=== PATIENT | female | born 1945 | race Caucasian/White ===

== ENCOUNTER → 2021-03-16 12:19 | Outpatient (CLI) | payer OTHER, SELFPAY | PROVIDERS: PCP Nurse Practitioner Family; Visit Provider Nurse Practitioner | DX: Z20.822 Contact with and (suspected) exposure to COVID-19 (principal) | CPT/HCPCS: C9803; U0003; U0005 ==

== ENCOUNTER → 2021-03-28 08:01 | Outpatient (CLI) | payer OTHER, SELFPAY | PROVIDERS: PCP Nurse Practitioner Family; Visit Provider Nurse Practitioner | DX: Z20.822 Contact with and (suspected) exposure to COVID-19 (principal); U07.1 COVID-19 | CPT/HCPCS: C9803; U0003; U0005 ==

== ENCOUNTER → 2021-07-26 10:51 | Outpatient (CLI) | payer OTHER, SELFPAY | PROVIDERS: PCP Nurse Practitioner Family; Visit Provider Nurse Practitioner | DX: U07.1 COVID-19 (principal) | CPT/HCPCS: C9803; U0003; U0005 ==

== ENCOUNTER 2022-05-29 09:28 | Inpatient (IN) | payer MEDICARE, MEDICAID, SELFPAY ==
[2022-05-29] VITALS (7 sets, daily range): BP systolic 107–168; BP diastolic 50–82; PULSE 59–72; RESP 16–26; TEMP 36.4–36.9; O2SAT 93–98; BMI 38.2; BMI 39.9
--- NOTE | 2022-05-29 09:42 | PC.NURSE ---
Dinh notified of stroke protocol MD at bedside
--- NOTE | 2022-05-29 09:46 | CT_ITS ---
FINAL REPORT TECHNIQUE: Noncontrast exam CLINICAL HISTORY: weakness/slurred speech-- stroke possible FINDINGS: Mild generalized atrophy. No abnormal density is seen. Ventricles are normal. There is no hemorrhage. No mass effect is seen. Moderate calcified plaque disease in the distal vertebral arteries. Bone windows show no evidence of fracture. IMPRESSION: No acute findings Reviewed, Interpreted and Dictated by José Victor MD Transcribed by Denis Dillon Authenticated and [facility]
--- NOTE | 2022-05-29 09:48 | XR_ITS ---
FINAL REPORT CLINICAL HISTORY: weak FINDINGS: PORTABLE CHEST The heart is normal in size. The mediastinum is unremarkable. The lungs are clear. There is no pneumothorax. IMPRESSION: No acute process. Reviewed, Interpreted and Dictated by José Victor MD Transcribed by Mei Snow Authenticated and [facility]
--- NOTE | 2022-05-29 09:49 | PC.NURSE ---
NIHSS score of 4 at this time. Notified
--- NOTE | 2022-05-29 09:50 | HMH.EDGENADL ---
Discharge Plan Referrals Follow up/Referrals: Louise Isaac [Primary Care Provider] - See instructions Discharge ED Provider: Clayton Manazno General Adult HPI General Stated complaint: ao 05/27 09:30 disorented and pain in arm, leg anl Time Seen by Provider: 05/29/22 09:42 History of Present Illness HPI narrative: Patient presents with 3-day history of left-sided weakness. Symptoms began on Sunday and resulted in a fall that day for which she denies injury. She denies headache or chest pain. She denies similar symptoms. Symptoms are described as moderate and without exacerbating or alleviating factors. Related Data Allergies Allergy/AdvReac Type Severity Reaction Status Date / Time No Known Allergies Allergy Verified 05/29/22 09:46 ROS Obtained: Yes All systems reviewed & no additional complaints except as documented Physical Exam General General appearance: alert Head Head exam: atraumatic, normocephalic and normal inspection Eye Eye exam: Present normal appearance, PERRL and EOMI ENT ENT exam: Present normal exam, normal oropharynx, mucous membranes moist, TM's normal bilaterally and normal external ear exam Neck Neck exam: Present normal inspection, full ROM and trachea midline; Absent meningismus or lymphadenopathy Chest Chest inspection: Present normal inspection and symmetric chest wall rise; Absent tenderness Respiratory Respiratory exam: Present normal lung sounds bilaterally; Absent respiratory distress Cardiovascular Cardiovascular exam: Present regular rate and normal rhythm; Absent JVD Abdominal Exam Abdominal exam: Present soft and normal bowel sounds; Absent distention, tenderness or guarding Extremities Exam Extremities exam: Present normal inspection, full ROM and normal capillary refill; Absent calf tenderness Back Exam Back exam: Present normal inspection; Absent tenderness Neurological Exam Neurological exam: Present alert, oriented X3 and motor sensory deficit (There is a slight left facial droop with her subtle weakness to the left arm and left leg. Sensory exam appears to be intact. There is slight pronator drift of the left arm.) Psychiatric Psychiatric exam: Present normal affect and normal mood Skin Skin exam: Present warm, dry, intact and normal color Lymphatic Lymphatic Findings: no adenopathy Medical Decision Making Medical Records Medical records reviewed: Yes I reviewed the patient's medical records. Tomi Inquiry Pt receiving controlled substance: No Orders (Tests/Meds): ED MEDICATIONS Generic Name Dose Route Start Last Admin Trade Name Freq PRN Reason Stop Dose Admin Sodium Chloride 10 ml 05/29/22 09:57 Sodium Chloride 0.9% 10ml Flush Syringe IV 06/28/22 09:56 NEEDED PRN Maintain IV Site ORDERS Category Date Time Status CT head/brain wo con Stat Cat Scan 05/29/22 09:46 Taken CXR --portable [XR chest portable] Stat Exams 05/29/22 09:48 Ordered CBC w/Auto Diff [Complete Blood Count Auto Diff] Stat Lab 05/29/22 09:45 Received CMP [Comprehensive Metabolic Panel] Stat Lab 05/29/22 09:45 Received PT/INR [Prothrombin Time INR] Stat Lab 05/29/22 09:45 Received Urinalysis and Microscopic Stat Lab 05/29/22 09:50 Ordered ECG Data Tracing #1: EKG: Rate 52, normal P waves, first-degree AV block., Nonspecific ST segment changes, LVH, normal QT interval, no previous for comparison. Critical Care Time Critical Care Time Critical Care Time: No Attestation: On , the high probability of a clinically significant, sudden or life threatening deterioration of the following system(s) required my full and direct attention, intervention and personal management. The time I documented below is in addition to time spent performing reported procedures but includes the following listed in this critical care notation.
--- NOTE | 2022-05-29 10:01 | PC.NURSE ---
PT BACK FROM CT
--- NOTE | 2022-05-29 10:05 | ECG_ITS ---
APPROVED REPORT Exam: Resting ECG HR:52 bpm ECG Measurements Heart Rate 52 AXES UT 233 P 61 QRSd 91 QRS 23 QT 437 T 19 QTc 418 Conclusion SINUS BRADYCARDIA WITH FIRST DEGREE AV BLOCK MODERATE VOLTAGE CRITERIA FOR LVH, CONSIDER NORMAL VARIANT [MEETS CRITERIA IN ONE OF: R(aVL), S(V1), R(V5), R(V5/V6)+S(V1)] NONSPECIFIC T-WAVE ABNORMALITY ABNORMAL ECG UNCONFIRMED REPORT Electronically signed by : Maury Galvez MD 05/29/2022 21:09:54
--- NOTE | 2022-05-29 10:08 | PC.NURSE ---
EKG delayed due to patient going to CT for stroke protocol.
[2022-05-29 10:11] LABS: Basophils # 0.1 K/mm3 (0-0.2); Basophils % 1.1 % (0.1-2.0); Eosinophils # 0.4 K/mm3 (0.0-0.4); Eosinophils % 4.9 % (0.1-12.0); Hematocrit 45.8 % (37.0-47.0); Hemoglobin 14.7 g/dL (12.2-16.2); Lymphocytes # 2.7 K/mm3 (0.7-4.5); Lymphocytes % 30.9 % (10-50); Mean Corpuscular HGB Conc 32.1 g/dL (31.8-35.4); Mean Corpuscular Hemoglobin 29.9 pg (27.0-31.2); Mean Corpuscular Volume 93.1 fl (81-99); Mean Platelet Volume 8.2 fl (7.4-10.4); Monocytes # 0.8 K/mm3 (0.1-1.0); Monocytes % 8.8 % (1.7-9.3); Neutrophils # 4.7 K/mm3 (1.8-7.8); Neutrophils % 54.3 % (37.0-80.0); Platelet Count 406 K/mm3 (142-424); Red Blood Count 4.93 M/mm3 (4.20-5.40); Red Cell Distribution Width 13.3 % (11.5-17.5); White Blood Count 8.6 K/mm3 (4.8-10.8)
--- NOTE | 2022-05-29 10:18 | PC.NURSE ---
Called rad to check on head CT report. Advised the report was locked at this time
[2022-05-29 10:20] LABS: Chloride 103 mmol/L (98-107); Sodium 138 mmol/L (136-145)
[2022-05-29 10:23] LABS: Alanine Aminotransferase 43 U/L (12-78); Albumin Level 4.7 g/dl (3.5-5.0); Albumin/Globulin Ratio 1.6 (1.1-1.8); Alkaline Phosphatase 82 U/L (38-126); Aspartate Amino Transferase 43 U/L (14-36); Bilirubin,Total 0.7 mg/dl (0.2-1.3); Blood Urea Nitrogen 20 mg/dl (7-17); Carbon Dioxide 25 mmol/L (22.0-30.0); Creatinine Clearance Estimated 69 mL/min (50-200); Estimated Glomerular Filt Rate 61 ml/min (>60); GFR (African American) 73 ML/MIN (>60); Glucose 124 mg/dl (74-100); INR 1.06 (0.9-1.1); Prothrombin Time 11.4 seconds (10.1-12.5); Total Protein,Serum 7.7 g/dl (6.3-8.2)
--- NOTE | 2022-05-29 10:23 | PC.NURSE ---
Preliminary CT report given to
[2022-05-29 10:26] LABS: Coronavirus 19, PCR Not Detected (NotDetected); Influenza A, PCR Not Detected (NotDetected); Influenza B, PCR Not Detected (NotDetected)
--- NOTE | 2022-05-29 10:56 | MR_ITS ---
FINAL REPORT TECHNIQUE: Multiplanar MR without contrast CLINICAL HISTORY: left weakness. STROKE FINDINGS: Diffusion sequences show restricted diffusion within the right basal ganglia and right thalamus consistent with multiple adjacent, small acute lacunar infarcts. There are moderate, chronic microvascular ischemic changes. No mass, hemorrhage or edema is seen. Ventricles are normal. Major vascular flow voids are intact. IMPRESSION: Multiple, small acute lacunar infarcts. These findings were discussed with Winston in the emergency room at 1:20 p.m.. Reviewed, Interpreted and Dictated by José Victor MD Transcribed by Fannie Couch Authenticated and [facility]
--- NOTE | 2022-05-29 10:58 | PC.NURSE ---
MD and myself at bedside updating pt and daughter on POC. No changes in pt condition and no new needs at this time. PT and daughter agreeable with POC
--- NOTE | 2022-05-29 10:59 | PC.NURSE ---
speaking with hospitalist
--- NOTE | 2022-05-29 11:00 | PC.NURSE ---
SPOKE WITH ESTELA IN CARE MANAGMENT SHE APPROVED MRI , SPOKE WITH ROLO IN MRI SHE STATED WILL APPROX 1 1/2 HRS
--- NOTE | 2022-05-29 11:00 | PC.NURSE ---
pt ambulatory with assistance to restroom
--- NOTE | 2022-05-29 11:02 | PC.NURSE ---
Notified care management of admission
--- NOTE | 2022-05-29 11:06 | PC.NURSE ---
Pt ambulatory back to room from restroom with assistance. No complications. Patient hooked back to monitor. UA sent to lab
[2022-05-29 11:10] LABS: Microscopic, Urine URINE MICROSCOPIC (MICROSCOPIC)
[2022-05-29 11:12] LABS: Appearance,Urine CLEAR (Clear); Bilirubin,Urine Negative (Negative); Blood, Urine Negative (Negative); Color,Urine YELLOW (Yellow); Glucose,Urine (UA) Negative (Negative); Ketones,Urine Negative (Negative); Leukocyte Esterase,Urine Negative (Negative); Nitrate,Urine Negative (Negative); Protein,Urine Negative (Negative); Urobilinogen,Urine 0.2 EU/dl (0.2)
[2022-05-29 11:25] LABS: Bacteria,Urine Trace /lpf; WBC,Urine Occasional #/hpf (0-3)
--- NOTE | 2022-05-29 11:38 | PC.NURSE ---
rounded on pt at this time. Resting in bed, repositioned. Daughter remains at bedside. No new symptoms and current symptoms remain the same. No other needs at this time
--- NOTE | 2022-05-29 12:03 | HMH.PHAINT1 ---
Pharmacy Intervention Comments: MEDICATION RECONCILIATION COMPLETED ON PATIENT USING EXTERNAL FILL HISTORY FROM PHARMACY. -LEEROY WHEELER, BAKARID
--- NOTE | 2022-05-29 12:13 | PC.NURSE ---
Pt to MRI.
--- NOTE | 2022-05-29 12:22 | PC.NURSE ---
Called report to Milagros.
--- NOTE | 2022-05-29 12:33 | CA_ITS ---
FINAL REPORT TECHNIQUE: Color Doppler, duplex Doppler and yates scale sonography of the bilateral neck arterial vasculature was performed. Velocities were measured in the carotid arteries. Stenosis evaluation based on the validated velocity criteria. CLINICAL HISTORY: weakness on left side, possible CVA FINDINGS: The peak systolic velocity of the right common carotid artery is 87 cm/s. The peak systolic velocity of the right internal carotid artery is 146 cm/s and end diastolic velocity 24 cm/s. The ICA/CCA ratio is 1.68. A mild amount of plaque is present. The right external carotid artery is patent. The right vertebral artery is patent with antegrade flow. The peak systolic velocity of the left common carotid artery is 91 cm/s. The peak systolic velocity of the left internal carotid artery is 68 cm/s and end diastolic velocity 21 cm/s. The ICA/CCA ratio is 0.74. A mild amount of plaque is present. The left external carotid artery is patent.The left vertebral artery is patent with antegrade flow. IMPRESSION: Less than 50% bilateral carotid stenosis. Bilateral patent vertebral arteries with antegrade flow. If indicated, CTA or MRA could further evaluate. Reviewed, Interpreted and Dictated by José Victor MD Transcribed by Mei Snow Authenticated and [facility]
--- NOTE | 2022-05-29 12:33 | CA_ITS ---
APPROVED REPORT EXAM: Comprehensive 2D, Doppler, and color-flow Echocardiogram Litigation Services Manager: Minoo Saldana, RT(R) Ht: 5 ft 0 in Wt: 204lbs BSA: 1.88 BP: 142/83 mmHg Indications: CVA, 3 day left sided weakness, HTN Echo Enhancing Agent Indication: Rule out Shunt Agent(s) / Amount(s) Used: Agitated Saline 15 cc 2D Dimensions Aortic Root 1.83 cm F: 2.7 - 3.3 LVEF (Buck's) 51.10 % F: 54 - 74 LVOT 2.03 cm (M/F) 1.5-2.5 LV Volume 75.50 mL F: 46 - 106 LV Volume Index 40.15 mL/m2 F: 29 - 61 LA Volume 50.40 mL LA Volume Index 26.80 mL/m2 (M/F) 16-34 M-Mode Dimensions RVDd 3.18 cm (0.9-2.6) LA Diam 4.38 cm (1.9-4.0) LVDd 5.12 cm (3.5-5.7) Ao Diam 2.40 cm (2.0-3.7) LVDs 3.60 cm (3.5-5.7) IVSd 0.80 cm (0.6-1.1) PWd 0.80 cm (0.6-1.1) EF (Teich) 56.40% FS 29.70% EDV (Teich) 124.90 mL ESV (Teich) 54.40 mL LV Diastology E Decel Time 260.00 (160-240 msec) E/A Ratio 0.8 MED E' 6.50 (< 7 cm/sec) E'/MED E' Ratio 13.94 (>14) LAT E' 4.90 (<10 cm/sec) E/LAT E' Ratio 18.49 (>14) Aortic Valve LVOT Max 104.00 (70-110 cm/s) LVOT VTI 26.30 cm AoV Peak Ashok. 221.00 (50-130 cm/s) AO Peak GR. 19.60 mmHg AO Mean GR. 9.60 (<5 mmHg) AO VTI 48.94 (18-25 cm) GAURANG (VTI) 1.74 (2.5-4.5 cm2) Mitral Valve MV E Max Ashok. 91.00 (40-130 cm/s) MV A Velocity 114.00 (40-130 cm/s) E/A Ratio 0.80 MV Decel. Time 260.00 (160-240 ms) MV PHT 76.00 ms Left Ventricle Left atrium is mildly enlarged, left ventricle is normal size mild concentric left ventricular hypertrophy, estimated ejection fraction 55% with no regional wall motion abnormality, grade 1 diastolic dysfunction seen with tissue Doppler evidence of raise left atrial pressure. Right Ventricle Right atrium and right ventricle are normal size and contractility. Atria Intra-atrial septum is intact, there is no flow across the interatrial septum, agitated saline contrast study did not identify intracardiac shunt. Aortic Valve Aortic valve is minimally thickened and calcified with mild restriction of the leaflet mobility, mean gradient across aortic valve is 10 mmHg, there is no significant aortic insufficiency. Mitral Valve There is mild mitral calcification: There is no mitral stenosis, there is mild mitral regurgitation. Tricuspid Valve Tricuspid valve grossly normal, there is mild tricuspid regurgitation, tricuspid regurgitation jet velocity is inadequate for calculation of the right ventricular systolic pressure. Pulmonic Valve Pulmonic valve is poorly visualized. Great Vessels Aortic root is normal size. Inferior vena cava is poorly visualized. Pericardium No significant pericardial effusion noted. Conclusion 1. Mildly enlarged left atrium Normal left ventricular size, mild concentric left ventricular hypertrophy, estimated ejection fraction 55% with no regional wall motion abnormality, grade 1 diastolic dysfunction seen with tissue Doppler evidence of raise left atrial pressure. 2. Thickened and calcified aortic valve with mild aortic stenosis, there is no aortic insufficiency. 3. Mild mitral and tricuspid regurgitation. 4. No significant pericardial effusion noted. 5. Agitated saline contrast study did not identify intracardiac shunt. 6. Inferior vena cava is poorly visualized. Electronically signed by : Benji Allan MD 05/30/2022 06:48:50
--- NOTE | 2022-05-29 12:35 | PC.NURSE ---
Dr. Antoine down to see pt, advised him pt was currently in MRI. VO for echo, carotid US and telly monitoring given at this time. Repeated and verified with Dr. Antoine. Called Milagros and let her know those orders had been entered and Dr. Antoine would be finishing the admission orders.
--- NOTE | 2022-05-29 13:00 | PC.NURSE ---
patient arrived to floor by wheelchair form x-ray
[2022-05-29 15:15] LABS: Chol/HDL Ratio 5.8 (1-3.5); Cholesterol 221 mg/dl (140-200); HDL Cholesterol 38 mg/dl (40-60); Triglycerides 200 mg/dl (30-150); VLDL Cholesterol 40 mg/dL (0-40)
[2022-05-29 15:25] LABS: Direct LDL Cholesterol 127.47 mg/dL (100-129)
--- NOTE | 2022-05-29 17:15 | HMH.SLDYSPHA ---
Speech & Language Evaluation Speech/Language Dysphagia Evaluation Start: 05/29/22 16:57 Freq: ONCE Status: Active Protocol: Document 05/29/22 16:57 NGUYENMARCOS (Rec: 05/29/22 17:14 [email or web address] [id number]) Dysphagia Assess/Goals/Plan Assessment Date of Evaluation: 05/29/22 Evaluation Type Initial Certification Assessment/Problems CVA Does Patient Qualify for Service No Qualify/Failure Comment Based on the results of the CSE, pt does not require further skilled speech therapy services at this time. Recommendations PHYSICIAN CERTIFICATION: The specified therapy services are required, authorized, and reviewed every 30 days. Diet Recommendations Normal Liquid Type Recommendations Normal/Thin Dysphagia Swallow Precautions/Strategies Sitting Upright (90 deg),Small Bites and Sips Place Food on Either side of Mouth Plan Pt/Guardian verbally ack understanding Yes of dx/prognosis/goals Pt/Guardian verbally ack understanding Yes of/consent to tx prog G -code Required No Education Instructions provided CSE results and diet recommendations discussed with pt, family, nursing, and care management, all of whom expressed understanding. Pt/Caregiver able to recall information Able to recall/restate Reinforcement needed No Speech & Language HPI History Present Illness Description of Patient Problem Ms. Blandon is a 77 y.o. female presenting to [facility] following a 3 day hx of left sided weakness. Her symptoms began on Sunday which resulted in a fall. MRI revealed small acute lacunar infarcts. ER MD noted mild L sided weakness in her arm and leg as well as a L facial droop. XCR was clear. Rehab Services Assessed Speech therapy General Information General Current Food Consistancy NPO Dentition Upper & Lower Dentures Oxygen Status Nasal Cannula Facial Symmetry Asymmetrical Patient Orientation Person,Place,Time,Situation Ability to Follow Directions Excellent Communication Ability No Impairment Dysphagia:Food Presentation Evaluation Food Type Pureed,Regular,Liquid Dysphagia Evaluation Regular Food Residual on tongue Behavior Response Dysphagia Evaluation Summary CSE was comple
--- NOTE | 2022-05-29 21:08 | EXP.HP ---
History of Present Illness *Admission Date: 05/29/22 *Reason for visit:: Weakness *History of present illness: 77-year-old female who presents the emergency department due to complaint of 3-day history of left-sided weakness. Symptoms began on Sunday resulting in a fall that day for which she denies any injury. She denies any chest pain, headache, shortness of breath. She denies any palpitations. She denies any other similar symptoms family is at bedside and provides majority of the history they state that she had a fall and felt abnormal afterward. She laid down and slept the majority of the day on Sunday. After awakening they noticed that her left side was not working as well as her right side, she was also having some slurring with speech. She denied wanting to go to the emergency department or getting evaluated. Family states that after 2 days of symptoms not improving they encouraged her to seek evaluation daily. On arrival to the emergency department she received a CTA which demonstrated no acute blockage. MRI was obtained prior to admission demonstrated multiple infarcts. Patient was admitted to hospitalist service for evaluation of etiology [facility] Medical History Hypertension Surgical History S/P appy Family History Other No significant family history Social History Smoking Status: Never smoker alcohol intake: never current occupational status: retired Travel in the last 8 weeks: None Review of Systems Review of Systems Review of systems:: pertinent systems reviewed and negative unless documented below Constitutional Constitutional: Reports weakness *Cardiovascular Cardiovascular: Denies chest pain and Denies dyspnea *Respiratory Respiratory: Denies dyspnea *Neurologic Neurologic: Reports abnormal speech, Reports behavioral changes, Reports lack of coordination and Reports weakness Psychiatric Psychiatric: Reports behavioral changes Meds Home Medications and Allergies Home Medications Medication Instructions Recorded Confirmed Type amlodipine 5 mg tablet 5 mg PO DAILY Hypertension 05/29/22 05/29/22 History carvedilol 25 mg tablet 25 mg PO BID Hypertension 05/29/22 05/29/22 History New Prescriptions to Start Prescriptions: Allergies Allergy/AdvReac Type Severity Reaction Status Date / Time No Known Allergies Allergy Verified 05/29/22 10:19 Exam Data for Last 24 hours Vital signs and Labs for Last 24 Hours: Temp Pulse Resp BP Pulse Ox 97.9 F 67 22 107/50 L 94 L 05/29/22 20:00 05/29/22 20:00 05/29/22 20:00 05/29/22 20:00 05/29/22 20:00 Laboratory Results - last 24 hr 05/29/22 09:45: WBC 8.6, RBC 4.93, Hgb 14.7, Hct 45.8, MCV 93.1, MCH 29.9, MCHC 32.1, RDW 13.3, Plt Count 406, MPV 8.2, Neut % (Auto) 54.3, Lymph % (Auto) 30.9, Tyrrell % (Auto) 8.8, Eos % (Auto) 4.9, Baso % (Auto) 1.1, Neut # (Auto) 4.7, Lymph # (Auto) 2.7, Tyrrell # (Auto) 0.8, Eos # (Auto) 0.4, Baso # (Auto) 0.1 05/29/22 09:45: PT 11.4, INR 1.06 05/29/22 09:45: Sodium 138, Potassium 4.0, Chloride 103, Carbon Dioxide 25, Anion Gap 14.0, BUN 20 H, Creatinine 0.90, Estimated Creat Clear 69, Estimated GFR 61, Est GFR ( Amer) 73, Glucose 124 H, Calcium 10.0, Total Bilirubin 0.7, AST 43 H, ALT 43, Alkaline Phosphatase 82, Total Protein 7.7, Albumin 4.7, Globulin 3.0, Albumin/Globulin Ratio 1.6 05/29/22 09:45: Triglycerides 200 H, Cholesterol 221 H, LDL Cholesterol Direct 127.47, VLDL Cholesterol 40, HDL Cholesterol 38 L, Cholesterol/HDL Ratio 5.8 H 05/29/22 10:22: SARS-CoV-2 (PCR) Not detected, Influenza A Untype (PCR) Not detected, Influenza Type B (PCR) Not detected 05/29/22 11:05: Urine Color Yellow, Urine Appearance Clear, Urine pH 6.0, Ur Specific Laurel 1.020, Urine Protein Negati
[2022-05-30] VITALS: BP 98/53; PULSE 62; PULSE 63; RESP 18; TEMP 36.8; O2SAT 93
[2022-05-30 04:00] VITALS: BP 120/59; PULSE 62; PULSE 67; RESP 20; TEMP 36.6; O2SAT 96
[2022-05-30 07:24] LABS: Basophils # 0.1 K/mm3 (0-0.2); Basophils % 1.3 % (0.1-2.0); Eosinophils # 0.5 K/mm3 (0.0-0.4); Eosinophils % 6.1 % (0.1-12.0); Hematocrit 41.7 % (37.0-47.0); Hemoglobin 13.5 g/dL (12.2-16.2); Lymphocytes # 3.2 K/mm3 (0.7-4.5); Mean Corpuscular HGB Conc 32.4 g/dL (31.8-35.4); Mean Corpuscular Hemoglobin 30.1 pg (27.0-31.2); Mean Corpuscular Volume 92.8 fl (81-99); Mean Platelet Volume 8.4 fl (7.4-10.4); Monocytes # 0.8 K/mm3 (0.1-1.0); Monocytes % 9.2 % (1.7-9.3); Neutrophils # 4.2 K/mm3 (1.8-7.8); Neutrophils % 47.4 % (37.0-80.0); Platelet Count 357 K/mm3 (142-424); Red Blood Count 4.49 M/mm3 (4.20-5.40); White Blood Count 8.9 K/mm3 (4.8-10.8)
[2022-05-30 07:31] LABS: Alanine Aminotransferase 41 U/L (12-78); Albumin Level 4.3 g/dl (3.5-5.0); Albumin/Globulin Ratio 1.6 (1.1-1.8); Alkaline Phosphatase 82 U/L (38-126); Anion Gap 20.5 mEq/L (5-15); Aspartate Amino Transferase 41 U/L (14-36); Bilirubin,Total 0.3 mg/dl (0.2-1.3); Blood Urea Nitrogen 27 mg/dl (7-17); Calcium 9.6 mg/dl (8.4-10.2); Carbon Dioxide 23 mmol/L (22.0-30.0); Chloride 99 mmol/L (98-107); Creatinine Clearance Estimated 68 mL/min (50-200); Estimated Glomerular Filt Rate 69 ml/min (>60); GFR (African American) 84 ML/MIN (>60); Globulin 2.7 g/dL (1.3-3.2); Glucose 110 mg/dl (74-100); Magnesium 2.1 mg/dl (1.6-2.3); Phosphorous 4.5 mg/dl (2.5-4.5); Potassium 3.5 mmoL/L (3.5-5.1); Sodium 139 mmol/L (136-145)
[2022-05-30 08:00] VITALS: BP 157/88; PULSE 68; PULSE 69; RESP 14; TEMP 36.8; O2SAT 95
[2022-05-30 08:25] VITALS: PULSE 74; O2SAT 94
--- NOTE | 2022-05-30 09:11 | HMH.PTEV ---
Physical Therapy Evaluation Rehab PT IP Evaluation Start: 05/30/22 08:01 Freq: ONCE Status: Active Protocol: Document 05/30/22 09:04 PHODIOGO (Rec: 05/30/22 09:10 PHORNE [id number]) Subjective/History History History 77 yowf adm to [facility] with CVA with L side weakness. She reports feeling better this am . She reports she lives with her daughter, 1 step to enter the home, generally independent with ambulation at baseline. Subjective Subjective Pt reports no c/o pain or numbness/tingling this am. Rehab PT IP Eval Objective Appearance Patient Behavior Appropriate Patient Orientation Person,Place,Time,Month,Year Difficulty following instructions none Speech Pattern Clear Ambulation Patient Able to Ambulate Yes Ambulation Observation IP General Gait Pattern Observation No Deviations/Normal Ambulation Distance (feet) 50 Ambulation Assistive Device None Ambulation Ability Supervision/Stand by Balance Ability to Arise Able, uses arms to help Sitting Balance Steady, safe Standing Balance Steady, wide stance Dynamic Sitting Balance Ability Good Dynamic Standing Balance Ability Fair Transfers Bed Transfer Ability Supervision/Stand by Chair Transfer Ability Supervision/Stand by Sit to Stand Bed Transfer Ability Supervision/Stand by Sit to Stand Chair Transfer Ability Supervision/Stand by ROM All Extremities PT ROM Status WFL MMT All Extremities PT MMT WFL Abnormal MMT Grade L SHLD grossly 4/5 throughout Rehab PT IP prob,goals,plan Problems Date of Evaluation: 05/30/22 PT IP Problems Transfers,Gait,Self care Rehab Potential Rehab Potential Good Plan PT Intervention Plan Transfers,Gait,Self care, Therapeutic Exercise PT Plan Frequency BID Discharge Goals Bed Transfer Ability Independent Sit to Stand Chair Transfer Ability Independent Ambulation Assistive Device None Ambulation Distance (feet) 75 Discharge Plan PT Discharge Plan Pt is appropriate to return home with family once medically stable. Recommend Outpatient therapy services once appropriate. G -code Required No Eval Complexity Eval Charge Codes 63897 - Moderate Complexity
--- NOTE | 2022-05-30 10:02 | HMH.OTEV ---
OT Inpatient Evaluation Rehab OT IP Evaluation Start: 05/30/22 08:01 Freq: ONCE Status: Complete Protocol: Document 05/30/22 09:52 GUMAROREGIS (Rec: 05/30/22 10:02 SAUMYA [id number]) Rehab OT IP Assessment Subjective History 77-year-old female who presents the emergency department due to complaint of 3-day history of left-sided weakness. Symptoms began on Sunday resulting in a fall that day for which she denies any injury. She denies any chest pain, headache, shortness of breath. She denies any palpitations. She denies any other similar symptoms family is at bedside and provides majority of the history they state that she had a fall and felt abnormal afterward. She laid down and slept the majority of the day on Sunday. After awakening they noticed that her left side was not working as well as her right side, she was also having some slurring with speech. She denied wanting to go to the emergency department or getting evaluated. Family states that after 2 days of symptoms not improving they encouraged her to seek evaluation daily. On arrival to the emergency department she received a CTA which demonstrated no acute blockage. MRI was obtained prior to admission demonstrated multiple infarcts . Patient was admitted to hospitalist service for evaluation of etiology. Patient lives at home with daugter, son-in-law and grandson in 1 story home with 2-3 EMMA. Independent with ADLs and fx'l mobility at this time. Dtr assist with housekeeping and cooking. Subjective
[2022-05-30 12:00] VITALS: BP 136/59; PULSE 68; PULSE 71; RESP 14; TEMP 36.8; O2SAT 94
--- NOTE | 2022-05-30 14:31 | EXP.DC.SUM ---
General Admission date:: 05/29/22 Discharge date: 05/30/22 HPI HPI HPI: 77-year-old female who presents the emergency department due to complaint of 3-day history of left-sided weakness. Symptoms began on Sunday resulting in a fall that day for which she denies any injury. She denies any chest pain, headache, shortness of breath. She denies any palpitations. She denies any other similar symptoms family is at bedside and provides majority of the history they state that she had a fall and felt abnormal afterward. She laid down and slept the majority of the day on Sunday. After awakening they noticed that her left side was not working as well as her right side, she was also having some slurring with speech. She denied wanting to go to the emergency department or getting evaluated. Family states that after 2 days of symptoms not improving they encouraged her to seek evaluation daily. On arrival to the emergency department she received a CTA which demonstrated no acute blockage. MRI was obtained prior to admission demonstrated multiple infarcts. Patient was admitted to hospitalist service for evaluation of etiology Hospital Course Hospital Course Hospital Course: Patient is 77-year-old female who presents to the emergency department after sustaining a fall found to have multiple ischemic strokes on MRI of various sizes and locations.? There is no definitive vascular territory or definitive pattern.? Concern for embolic etiology versus small vessel etiology. Symptoms improved during admission. Stable for discharge home after evaluation by therapy services. Holter monitor placed prior to discharge. Problems addressed as follows: CVA: cardioembolic versus small vessel etiology -Admitted to medicine for continuous telemetry, evaluation for A. fib, PT/OT/speech consults. Blood pressure stable during admission. Carotid ultrasounds ordered along with echo. Findings as follows: Echo: 1.? Mildly enlarged left atrium Normal left ventricular size, mild concentric left ventricular hypertrophy, estimated ejection fraction 55% with no regional wall motion abnormality, grade 1 diastolic dysfunction seen with tissue Doppler evidence of raise left atrial pressure. 2.? Thickened and calcified aortic valve with mild aortic stenosis, there is no aortic insufficiency. 3.? Mild mitral and tricuspid regurgitation. 4.? No significant pericardial effusion noted. 5.? Agitated saline contrast study did not identify intracardiac shunt. 6.? Inferior vena cava is poorly visualized. Carotid Duplex IMPRESSION: Less than 50% bilateral carotid stenosis.? Bilateral patent vertebral arteries with antegrade flow. ? ? If indicated, CTA or MRA could further evaluate. (Deferred to primary care for outpatient decision) -Speech and swallow ordered with no concerns for aspiration. -Physical therapy and Occupational Therapy evaluated patient. Recommended home health or outpatient PT. - started on aspirin, Plavix, statin. Consider neurology referral as an outpatient. Patient stable for discharge home with family. Follow-up with PCP in the next 1 to 2 weeks. Exam Data for Last 24 hours Vital signs and Labs for Last 24 Hours: Temp Pulse Resp BP Pulse Ox 98.3 F 71 14 136/59 L 94 L 05/30/22 12:00 05/30/22 12:00 05/30/22 12:00 05/30/22 12:00 05/30/22 12:00 Laboratory Results - last 24 hr 05/29/22 09:45: Triglycerides 200 H, Cholesterol 221 H, LDL Cholesterol Direct 127.47, VLDL Cholesterol 40, HDL Cholesterol 38 L, Cholesterol/HDL Ratio 5.8 H 05/30/22 06:06: WBC 8.9, RBC 4.49, Hgb 13.5, Hct 41.7, MCV 92.8, MCH 30.1, MCHC 32.4, RDW 13.0, Plt Count 357, MPV 8.4, Neut % (Auto) 47.4, Lymph % (Auto) 36.0, Crane % (Auto) 9.2, Eos % (Auto) 6.1, Baso % (Auto) 1.3, Neut # (Auto) 4.2, Lymph # (Auto) 3.2, Crane # (Auto) 0.8, Eos # (Auto) 0.5 H, Baso # (Auto) 0.1 05/30/22 06:06: Sodium 139, Potassium 3.5, Chloride 99, Carbon Dioxide 23, Anion Gap 20.5 H, BUN 27 H D, Creatinin
--- NOTE | 2022-05-30 14:41 | HMH.PHAINT1 ---
Pharmacy Intervention Comments: Discharge counseling completed at bedside with patient. Discussed new medications (clopidogrel, aspirin, and atorvastatin) and continued medications (carvedilol and amlodipine). Overviewed indication and possible side effects/mitigation strategies for each new medication. Patient verbalized understanding and has no questions or concerns at this time.
--- NOTE | 2022-06-01 14:12 | CARE MANAGER ---
Attempted to contact patient related to discharge from the hospital. No VM option. MEGHAN Arenas
--- NOTE | 2022-06-05 12:05 | EXP.EVENT.NO ---
Holter monitor was placed at time of discharge because of CVA and unknown cause. Result shows slow A. fib. Contacted patient's primary care (Louise Isaac, with family medicine in [place]). Informed her of results. Patient is scheduled to see Dr. Umanzor for further eval per patient's PCP. Was discharged on Plavix and aspirin. Recommended to patient's PCP close follow-up for further discussion and shared decision making on anticoagulation needs.
== END 2022-05-30 15:50 | disposition home or self-care (01) | DRG 66 ==
LOC: ER 11:05 → 2ND 11:44
PROVIDERS: Admitting Provider Student in an Organized Health Care Education/Training Program; Emergency Provider Emergency Medicine; PCP Nurse Practitioner Family; Visit Provider Internal Medicine Adolescent Medicine
DX: I63.81 Other cerebral infarction due to occlusion or stenosis of small artery (principal); I65.23 Occlusion and stenosis of bilateral carotid arteries; E78.5 Hyperlipidemia, unspecified
CPT/HCPCS: 36415; 70450; 70551; 71045; 80053; 80061; 81001; 83735; 84100; 85025; 85610; 92610; 93005; 93225; 93226; 93306; 93880; 97116; 97162; 97165; 99285; C9803; U0003; U0005

== ENCOUNTER 2022-07-07 10:00 | Outpatient (RCR) | payer MEDICARE, MEDICAID, SELFPAY ==
--- NOTE | 2022-06-05 10:57 | HMH.OTOPEV ---
OT Inpatient Evaluation Rehab OT Outpatient Eval Start: 06/05/22 10:43 Freq: Status: Active Protocol: Document 06/05/22 10:43 RMARSHALL (Rec: 06/05/22 10:57 [facility] [id number]) E-signed By Randolph Corley, OT Outpatient Therapy Subjective History Subjective History Pt is a 77 year old female who reports to therapy for an initial evaluation to LUE following a CVA. Pt experienced a 3 day weakness on L side and some slurring of speech resulting in a fall at home. Pt was taken to ER and was admitted on 05/29/22 due to having an MRI that found multiple ischemic strokes of various sizes and locations. Pt's symptoms resolved quickly and she was discharged home with her daugther; Pt does live with her daughter. Pt claims prior to her CVA she was independent with all ADLS and IADLs, she still drove, and she did not use any type of AE during ambulation. Since stroke, she remains independent with all ADLs, but daughter has been completing IADLs for her. As of now, she does not use AE during ambulation. She is no longer driving. Theraist observes a SLIGHT decline in LUE strength , social worker psychiatric strength, and fine motor. Pt is right hand dominant. Pt's AROM at all LUE joints (shoulder, elbow, wrist, and digits) are all within normal limits. Pt will continue to be seen in order to address all LUE deficits. Pt agreeable to plan. Current 9 hole peg test: Right hand: 26 seconds Left hand: 34 seconds STG L hand 9 hole peg test: 32 seconds LTG L hand 9 hole peg test: 30 seconds L hand STG social worker psychiatric strength:
== END 2022-07-07 10:05 | disposition home or self-care (01) ==
LOC: OT 10:00
PROVIDERS: PCP Nurse Practitioner Family; Visit Provider Internal Medicine Adolescent Medicine
DX: I69.398 Other sequelae of cerebral infarction (principal)
CPT/HCPCS: 97110; 97166; 97530

== ENCOUNTER 2022-08-03 10:00 | Outpatient (RCR) | payer MEDICARE, MEDICAID, SELFPAY ==
--- NOTE | 2022-07-05 11:58 | HMH.RHREAS ---
Rehab Reassessment Rehab OP Re-assessment Start: 07/05/22 11:35 Freq: Status: Active Protocol: Document 07/05/22 11:35 SHANTA (Rec: 07/05/22 11:56 SHANTA [id number]) E-signed By Christiano Cardenas, PT Rehab Re-assessment Subjective Subjective Pt reports improved LE strength and endurance w/ household activities, however, still reports limitations in functional endurance Objective Objective Notes MMT: LEFT HIP FLX 5/5, L HIP ABD 4+/5, L HIP ADD 5/5, L HIP EXT 4+-5/5, L KNEE EXT 5/5, L KNEE FLX 5/5, L ANKLE DF 5/5 PROM: L HIP FLX KNEE EXTD 0-65 , L HIP FLX KNEE FLXD 0-100 TINETTI: 29 TUSEC NO A.D. Assessment Progress Assessment Progressing as Expected Assessment Notes SIGNIFICANT IMPROVEMENTS IN BALANCE, STRENGTH, PROM AND GAIT Patient goals met STG'S 11/06 LTG'S 09/05 Goals Not Met STG'S 09/06, LTG'S 10/06 Plan Plan Pt to continue w/skilled P.T. to make further improvements in ROM, strength, gait, and endurance to allow for optimal function Frequency of Therapy 2-3x/wk Duration of therapy 2-4wks Time and Billing Re-Eval Time 12 Re-Eval Billing Units 1 PHYSICIAN CERTIFICATION: I certify the specified therapy services for Aysha Blandon are required, authorized, and reviewed every 30 days.
== END 2022-08-03 10:05 | disposition home or self-care (01) ==
LOC: PT 10:00
PROVIDERS: PCP Nurse Practitioner Family; Visit Provider Internal Medicine Adolescent Medicine
DX: I69.398 Other sequelae of cerebral infarction (principal)
CPT/HCPCS: 97110; 97112; 97163; 97164

== ENCOUNTER 2022-10-10 15:56 | Emergency (ER) | payer MEDICARE, MEDICAID, SELFPAY ==
[2022-10-10 16:10] VITALS: BP 136/79; PULSE 76; RESP 20; TEMP 36.9; O2SAT 98; BMI 39.4
--- NOTE | 2022-10-10 16:37 | EXP.UTC ---
Discharge Plan Disposition Patient Disposition: Home, Self-Care Condition: Good Prescriptions Prescriptions: New benzonatate 100 mg capsule 100 mg PO TID PRN (Reason: cough) Qty: 30 0RF amoxicillin-pot clavulanate 875-125 mg Tablet 1 tab PO Q12H Qty: 14 0RF No Action pantoprazole 40 mg Tablet,Delayed Release (Dr/Ec) 40 mg PO DAILY atorvastatin 40 mg tablet 40 mg PO HS clopidogrel 75 mg tablet 75 mg PO DAILY aspirin 81 mg tablet,delayed release (DR/EC) 81 mg PO DAILY carvedilol 25 mg tablet 25 mg PO BID amlodipine 5 mg tablet 5 mg PO DAILY Label Comments: TAKE 1 TABLET BY MOUTH ONCE DAILY Referrals Follow up/Referrals: Louise Isaac [Primary Care Provider] - See instructions Activity Restrictions/Add. Instructions Additional Instructions/Restrictions: *Monitor Temp, Over the counter Motrin or Tylenol as directed/as needed Tylenol every 4 hours and Motrin every 6 hours (as long as your family doctor has told you that you can take it) for fever or pain. and straight to ER if unable to lower temp less than 101.0 after medication given *Warm salt water gargles may help to soothe the throat *Throat Lozenges? *Warm fluids like tea with honey may help to soothe the throat? *Sleep elevated *Humidifier/Vaporizer *Flonase 2 sprays in each nostril daily but be aware that it may take 2-3 days before you notice improvement Follow up IMMEDIATELY for new or worsening symptoms or no Noticeable improvement over the next 48-72 hours. 911 for difficulty breathing or swallowing Clinical Impressions Clinical Impression: Sinusitis Instructions Patient Instructions: DI for Sinusitis, Sinusitis Discharge ED Provider: Pati Kern [facility] HPI General Stated complaint: cough, cat, diarrhea Mode of Arrival: Ambulatory Source of Information: Patient Limitations: No Limitations Time Seen by Provider: 10/10/22 16:37 Description of Symptoms (Recalled from Triage Doc. by RN): cough, ear ache, LUNA, and stopped up HEENT Symptoms (Recalled from RN notes): Yes Resp Symptoms (Recalled from RN notes): No Skin Symptoms (Recalled from RN notes): No MS Symptoms (Recalled from RN notes): No Functional Status (Recalled from RN notes): n/a History of Present Illness Provider Complaint: Patient states that she has been having sinus pain and pressure especially on the left side and has had some blood tinged mucous from her nose, cough, ear aches and feeling like she is having drainage in the back of her throat that has cause some diarrhea Denies SOA Related Data Home Medications Medication Instructions Recorded Confirmed amlodipine 5 mg tablet 5 mg PO DAILY Hypertension 05/29/22 10/10/22 carvedilol 25 mg tablet 25 mg PO BID Hypertension 05/29/22 10/10/22 aspirin 81 mg tablet,delayed 81 mg PO DAILY heart health 10/10/22 10/10/22 release atorvastatin 40 mg tablet 40 mg PO HS Cholesterol 10/10/22 10/10/22 clopidogrel 75 mg tablet 75 mg PO DAILY Blood thinner 10/10/22 10/10/22 pantoprazole 40 mg tablet,delayed 40 mg PO DAILY gerd 10/10/22 10/10/22 release Previous Rx's Medication Instructions Recorded amoxicillin 875 mg-potassium 1 tab PO Q12H #14 tabs 10/10/22 clavulanate 125 mg tablet benzonatate 100 mg capsule 100 mg PO TID PRN cough #30 caps 10/10/22 Allergies Allergy/AdvReac Type Severity Reaction Status Date / Time No Known Allergies Allergy Verified 10/10/22 16:18 Worker's Comp Is this a Worker's Comp case?: No [facility] Disclaimer: The information contained in this section may have been updated after the patient was seen, as this information can be updated by other users. Medical History Hypertension Surgical History S/P appy Family History Other No significan
[2022-10-10 16:53] VITALS: BP 136/79; PULSE 76; RESP 20; TEMP 36.9; O2SAT 98
== END 2022-10-10 16:52 | disposition home or self-care (01) ==
PROVIDERS: Emergency Provider Nurse Practitioner; PCP Nurse Practitioner Family
DX: J01.90 Acute sinusitis, unspecified (principal); R19.7 Diarrhea, unspecified; R05.9 Cough, unspecified; H92.03 Otalgia, bilateral; I10 Essential (primary) hypertension
CPT/HCPCS: 99212; 99214; G0463

== ENCOUNTER 2023-06-14 14:42 | Emergency (ER) | payer MEDICARE, MEDICAID, SELFPAY ==
[2023-06-14 14:55] VITALS: BP 128/68; PULSE 63; RESP 20; TEMP 36.9; O2SAT 95; BMI 39.6
--- NOTE | 2023-06-14 15:16 | EXP.UTC ---
Discharge Plan Disposition Patient Disposition: Home, Self-Care Condition: Good Prescriptions Prescriptions: New prednisone 10 mg tablet 10 mg PO BID 5 Days Qty: 10 0RF benzonatate 100 mg capsule 100 mg PO TID PRN (Reason: cough) Qty: 30 0RF amoxicillin-pot clavulanate 875-125 mg Tablet 1 tab PO Q12H Qty: 20 0RF No Action atorvastatin 40 mg tablet 40 mg PO HS clopidogrel 75 mg tablet 75 mg PO DAILY carvedilol 25 mg tablet 25 mg PO BID amlodipine 5 mg tablet 5 mg PO DAILY Patient Comments: TAKE 1 TABLET BY MOUTH ONCE DAILY triamterene-hydrochlorothiazid 37.5-25 mg Capsule 1 cap PO DAILY Referrals Follow up/Referrals: Provider,Referral, MD [Primary Care Provider] - See instructions Activity Restrictions/Add. Instructions Additional Instructions/Restrictions: Start antibiotic today. Be sure to complete entire prescription even if feeling better Monitor temp. Tylenol every 4 hours as needed and / or ibuprofen every 6 hours as needed ( As long as your primary care physician has told you that it ok to take both. For fever/aches/pains ER if no less than 101 despite Tylenol or Motrin Humidifier/vaporizer or hot steamy shower *Tessalon Perles will not cause drowsiness but use at bedtime to help stop cough so that you may get some rest. *Start steroid today. Helps with inflammation therefore, cough and wheezing. Follow directions on the package. Reviewed side effects. Patient reports taking them before. Follow up IMMEDIATELY for new or worsening of symptoms OR no noticeable improvement over the next 48-72 hours. 911 immediately for any life threatening symptoms such as chest pain or difficulty breathing Clinical Impressions Clinical Impression: Bronchitis Sinusitis Qualifiers: Sinusitis location: unspecified location Chronicity: unspecified Qualified Code(s): J32.9 - Chronic sinusitis, unspecified Instructions Patient Instructions: DI for Sinusitis, Acute Bronchitis Discharge ED Provider: Pati Kern [facility] General Stated complaint: cough and congestion Mode of Arrival: Ambulatory Source of Information: Patient Limitations: No Limitations Time Seen by Provider: 06/14/23 15:17 Description of Symptoms (Recalled from Triage Doc. by RN): PATIENT C/O COUGH WITH RIB PAIN X 1 WEEK HEENT Symptoms (Recalled from RN notes): No Resp Symptoms (Recalled from RN notes): Yes Skin Symptoms (Recalled from RN notes): No MS Symptoms (Recalled from RN notes): No Functional Status (Recalled from RN notes): WNL History of Present Illness Provider Complaint: Patient states that she has been having some sinus pressure and congestion with a dry cough for about a week States that she has coughed so much her ribs feels sore at times States that she isnt coughing anything up and not had a fever or anything but today when she was still having the pressure and the cough she came in to get checked Related Data Home Medications Medication Instructions Recorded Confirmed amlodipine 5 mg tablet 5 mg PO DAILY Hypertension 05/29/22 06/14/23 carvedilol 25 mg tablet 25 mg PO BID Hypertension 05/29/22 06/14/23 atorvastatin 40 mg tablet 40 mg PO HS Cholesterol 10/10/22 06/14/23 clopidogrel 75 mg tablet 75 mg PO DAILY Blood thinner 10/10/22 06/14/23 triamterene 37.5 1 cap PO DAILY 06/14/23 06/14/23 mg-hydrochlorothiazide 25 mg capsule Previous Rx's Medication Instructions Recorded amoxicillin 875 mg-potassium 1 tab PO Q12H #20 tabs 06/14/23 clavulanate 125 mg tablet benzonatate 100 mg capsule 100 mg PO TID PRN cough #30 caps 06/14/23 prednisone 10 mg tablet 10 mg PO BID 5 days #10 tabs 06/14/23 Allergies Allergy/AdvReac Type Severity Reaction Status Date / Time No Known Allergies Allergy Verified 10/10/22 16:18 Worker's Comp Is this a Worker's Comp case?: No [facility] Disclaimer: The information contained in thi
[2023-06-14 15:35] VITALS: BP 128/68; PULSE 63; RESP 20; TEMP 36.9; O2SAT 95
== END 2023-06-14 15:38 | disposition home or self-care (01) ==
PROVIDERS: Emergency Provider Nurse Practitioner
DX: J20.9 Acute bronchitis, unspecified (principal); J01.90 Acute sinusitis, unspecified; R07.81 Pleurodynia; R51.9 Headache, unspecified; R05.9 Cough, unspecified; R09.81 Nasal congestion; E78.5 Hyperlipidemia, unspecified; I10 Essential (primary) hypertension
CPT/HCPCS: 96372; 99212; 99214; G0463

== ENCOUNTER 2023-10-23 15:38 | Emergency (ER) | payer MEDICARE, MEDICAID, SELFPAY ==
[2023-10-23 16:00] VITALS: BP 123/72; PULSE 62; RESP 20; TEMP 36.6; O2SAT 95; BMI 39.4
--- NOTE | 2023-10-23 16:22 | ED_ITS ---
Discharge Plan Disposition Patient Disposition: Home, Self-Care Condition: Good Prescriptions Prescriptions: New benzonatate 100 mg capsule 100 mg PO TID PRN (Reason: cough) Qty: 30 0RF amoxicillin-pot clavulanate 875-125 mg Tablet 1 tab PO Q12H Qty: 20 0RF methylprednisolone [Medrol (Peng)] 4 mg tablets,dose pack See Rx Instructions .Route .COMPLEX 6 Days Qty: 21 0RF Rx Instructions: taper pack; No Action atorvastatin 40 mg tablet 40 mg PO HS clopidogrel 75 mg tablet 75 mg PO DAILY carvedilol 25 mg tablet 25 mg PO BID amlodipine 5 mg tablet 5 mg PO DAILY Patient Comments: TAKE 1 TABLET BY MOUTH ONCE DAILY triamterene-hydrochlorothiazid 37.5-25 mg Capsule 1 cap PO DAILY Referrals Follow up/Referrals: Louise Isaac [Primary Care Provider] - See instructions Activity Restrictions/Add. Instructions Additional Instructions/Restrictions: *Monitor Temp, Over the counter Motrin or Tylenol as directed/as needed Tylenol every 4 hours and Motrin every 6 hours (as long as your family doctor has told you that you can take it) for fever or pain. and straight to ER if unable to lower temp less than 101.0 after medication given *Warm salt water gargles may help to soothe the throat *Throat Lozenges? *Warm fluids like tea with honey may help to soothe the throat? *Sleep elevated *Humidifier/Vaporizer Take medication as prescribed Your throat swab was sent for culture. Those results are typically sent to your primary care. Be sure to follow up in 2-3 days with your family doctor/primary care physician if no improvement so they can review those result and treat if necessary. If you don?t have a primary care doctor, I recommend you get one but in the mean time, you will have to return to a walk in clinic Follow up IMMEDIATELY for new or worsening symptoms or no Noticeable i mprovement over the next 48-72 hours. 911 for difficulty breathing or swallowing Clinical Impressions Clinical Impression: Sinusitis Instructions Patient Instructions: DI for Sinusitis, DI for Ear Pain-Adult Discharge ED Provider: Pati Kern [facility] [place] HPI General Stated complaint: sore throat, left ear pain Mode of Arrival: Ambulatory Source of Information: Patient Limitations: No Limitations Time Seen by Provider: 10/23/23 16:22 Description of Symptoms (Recalled from Triage Doc. by RN): Pt's symptoms are cough, sore throat, and ear aches. HEENT Symptoms (Recalled from RN notes): Yes Resp Symptoms (Recalled from RN notes): No Skin Symptoms (Recalled from RN notes): No MS Symptoms (Recalled from RN notes): No Functional Status (Recalled from RN notes): n/a History of Present Illness Provider Complaint: Patient states that she has not been feeling well for several days States that she has been having bilateral ear pain and pressure, sore throat, cough and sinus congestion and pressure States that she was recently around someone with the flu but today her ears was killing her and she was still feeling bad so she came in Related Data Home Medications Medication Instructions Recorded Confirmed amlodipine 5 mg tablet 5 mg PO DAILY Hypertension 05/29/22 10/23/23 carvedilol 25 mg tablet 25 mg PO BID Hypertension 05/29/22 10/23/23 atorvastatin 40 mg tablet 40 mg PO HS Cholesterol 10/10/22 10/23/23 clopidogrel 75 mg tablet 75 mg PO DAILY Blood thinner 10/10/22 10/23/23 triamterene 37.5 1 cap PO DAILY 06/14/23 10/23/23 mg-hydrochlorothiazide 25 mg capsule Previous Rx's Medication Instructions Recorded amoxicillin 875 mg-potassium 1 tab PO Q12H #20 tabs 10/23/23 clavulanate 125 mg tablet benzonatate 100 mg capsule 100 mg PO TID PRN cough #30 caps 10/23/23 methylprednisolone 4 mg tablets in See Rx Instructions .Route 10/23/23 a dose pack (Medrol (Peng)) .COMPLEX 6 days #21 tabs Allergies Allergy/AdvReac Type Severity Reaction Status Date / Time No Known Allergies Allergy Verified 10/23/23 16:21 Worker's Comp Is this a Worker's Comp case?: No [facility] Disclaimer: The information contained in this section may have been updated after the patient was seen, as this information can be updated by other users. Medical History (Updated 10/23/23 @ 16:35 by Pati Kern APRN) Hyperlipidemia History of stroke Hypertension Surgical History S/P appy Family History Other No significant family history Social History Smoking Status: Never smoker alcohol intake: never current occupational status: retired Travel in the last 8 weeks: None ROS Obtained: Yes All systems reviewed & no additional complaints except as documented and Yes Systems reviewed as appropriate & no additional complaints except as documented Constitutional Constitutional: Reports system reviewed and no additional complaints, except as documented, Reports as per HPI and Reports body ache ENT Ears, Nose, Mouth, and Throat: Reports system reviewed and no additional complaints, except as documented, Reports as per HPI, Reports otalgia, Reports sinus pain, Reports sinus pressure and Reports sore throat Cardiovascular Cardiovascular: Reports system reviewed and no additional complaints, except as documented and Reports as per HPI Respiratory Respiratory: Reports system reviewed and no additional complaints, except as documented, Reports as per HPI and Reports cough Gastrointestinal Gastrointestingal: Reports system reviewed and no additional complaints, except as documented and as per HPI Physical Exam General General appearance: alert and in no apparent distress ENT ENT exam: Present mucous membranes moist Expanded ENT Exam TM/Canal exam: Right TM: erythema and Bilateral TM: bulging Nose exam: Present sinus tenderness Throat exam: Present other (Pharyngeal erythema noted with PND) Respiratory Respiratory exam: Present normal lung sounds bilaterally; Absent respiratory distress or wheezes Cardiovascular Cardiovascular exam: Present regular rate, normal rhythm and normal heart sounds Neurological Exam Neurological exam: Present alert, oriented X3 and normal gait Medical Decision Making Tomi Inquiry Pt receiving controlled substance: No Tomi was queried for this patient: No Vital Signs: 10/23/23 16:00 Temperature 97.9 F Temperature Source Oral Pulse Rate [Right Radial] 62 Respiratory Rate 20 Blood Pressure [Right Arm] 123/72 Blood Pressure Mean [Right Arm] 89 Blood Pressure Source [Right Arm] Automatic Cuff Blood Pressure Position [Right Arm] Sitting 02 Sat by Pulse Oximetry 95 Oxygen Delivery Method Room Air Lab Data Lab results reviewed: Yes I reviewed the patient's lab results.
[2023-10-23 16:30] LABS: UTC Influenza A Antigen Negative (Negative); UTC Strep Screen (Rapid) Negative (Negative)
[2023-10-23 16:31] LABS: UTC Influenza B Antigen Negative (Negative)
[2023-10-23 16:50] VITALS: BP 123/72; PULSE 62; RESP 20; TEMP 36.6; O2SAT 95
== END 2023-10-23 16:50 | disposition home or self-care (01) ==
PROVIDERS: Emergency Provider Nurse Practitioner; PCP Nurse Practitioner Family
DX: J01.90 Acute sinusitis, unspecified (principal); H92.03 Otalgia, bilateral; R07.0 Pain in throat; R05.9 Cough, unspecified; R09.81 Nasal congestion; I10 Essential (primary) hypertension; E78.5 Hyperlipidemia, unspecified
CPT/HCPCS: 87804; 87880; 99212; 99214; G0463

== ENCOUNTER 2023-12-27 11:41 | Outpatient (CLI) | payer MEDICARE, SELFPAY ==
--- NOTE | 2023-12-27 11:42 | CA_ITS ---
APPROVED REPORT EXAM: Comprehensive 2D, Doppler, and color-flow Echocardiogram Adhesive Bandage Machine Operator: Taylor Wiseman RVT Ht: 5 ft 1 in Wt: 212lbs BSA: 1.94 BP: 151/72 mmHg Indications: ABN EKG,SOA,,MURMUR,HTN,HLD,FATIGUE,OBESITY TDS-R/T BODY HABITUS 2D Dimensions IVSd 0.74 cm F: 0.6-1.0 LVEF (Visual) 51.10 % PWd 0.96 cm F: 0.6 - 1.0 LA Volume 45.60 mL LVDd 4.30 cm F: 3.9 - 5.3 LA Volume Index 23.51 mL/m2 (M/F) 16-34 LVDs 3.19 cm F: 2.2 - 3.5 M-Mode Dimensions LA Diam 3.98 cm (1.9-4.0) TAPSE 2.22 (<1.7) LV Diastology E Decel Time 150 (160-240 msec) E/A Ratio 0.5 Aortic Valve GAURANG Index 0.65 cm2/m2 AoV Peak Ashok. 235.0 (50-130 cm/s) AO Peak GR. 22.20 mmHg AO Mean GR. 12.40 (<5 mmHg) AO VTI 55.1 (18-25 cm) GAURANG (VTI) 1.29 (2.5-4.5 cm2) Mitral Valve MV E Max Ashok. 51.0 (40-130 cm/s) MV A Velocity 103.0 (40-130 cm/s) E/A Ratio 0.49 MV Mean Gr. 2.20 (<2mmHg) MV PHT 44.0 ms Pulmonary Valve PV Peak Velocity 81.0 (50-150 cm/s) Left Ventricle The left ventricle is normal size. The left ventricular systolic function is normal. The left ventricular ejection fraction is within the normal range. There is increased LV wall thickness. There is normal LV segmental wall motion. Diastolic function is indeterminate. LVEF is 55%. Right Ventricle The right ventricle is mildly dilated. The right ventricular systolic function is normal. Atria The left atrium size is normal. The right atrium size is normal. There is no Doppler evidence of interatrial shunt. Aortic Valve The aortic valve is moderately thickened. Moderate aortic stenosis. GAURANG by continuity equation is 1.3 cm2. Peak velocity 2.3 m/s. Mean AV gradient 12 mmHg. Max AV gradient 22 mmHg. SVi=37 ml/m2. DI=0.42. Trace aortic regurgitation. Mitral Valve Mild mitral annular calcification. The mitral valve leaflets are mildly thickened. No evidence of mitral valve stenosis. Trace mitral regurgitation. Tricuspid Valve The tricuspid valve leaflets are thin and pliable. Trace tricuspid regurgitation. There is insufficient TR jet to estimate RVSP. Pulmonic Valve The pulmonary valve is normal in structure. Trace pulmonic regurgitation. Great Vessels The aortic root is normal in size. The ascending aorta is normal in size. IVC is normal in size and collapses >50% with inspiration. Pericardium There is no pericardial effusion. Other Information Study Quality: Technically Difficult Conclusion Technically difficult study due to poor acoustic windows. Normal biventricular systolic function. Mild RV dilation. Moderate (GAURANG by continuity equation is 1.3 cm2. peak velocity 2.3 m/s. Mean AV gradient 12 mmHg. Max AV gradient 22 mmHg. SVi=37 ml/m2. DI=0.42) Electronically signed by : Rashmi Long MD 12/31/2023 12:07:00
--- NOTE | 2023-12-27 11:42 | NM_ITS ---
APPROVED REPORT Exam: Nuclear Stress Test Indication: soa Patient Location: Outpatient Stress Tech: Yovana Patricio [place] Tech:Iris Lopez ISAJennie RT(R)(N) Ht: 5 ft 2 in Wt: 209 lbs Bra Size: 38c HR: 66 bpm BP: 154/79 mmHg BSA: 1.95 m2 TID: 1.00 BMI: 38.2 History: soa Procedure: Patient received 0.4 mg of intravenous Lexiscan, resting heart rate 66 bpm, resting blood pressure 154/79 mmHg, with Lexiscan maximum heart rate achieved was 78 bpm which is 85 % of the maximum predicted heart rate and blood pressure was 154/79 mmHg. With Lexiscan, patient denied any complaint of chest pain. Cardiac Stress and Resting SPECT Images: Cardiac Stress and Resting SPECT images were obtained using technetium 99m Myoview 32.8 mCi stress and 10.06 mCi at rest. Resting and stress imaging in supine and prone positions demonstrate no evidence of fixed or reversible perfusion defects. Gated imaging demonstrates normal global and regional LV systolic function. LVEF is calculated at 69%. Conclusion: No evidence of fixed or reversible perfusion defects. Gated imaging demonstrates normal global and regional LV systolic function. LVEF is calculated at 69%. Electronically signed by : Rashmi Long MD 12/30/2023 22:23:05
--- NOTE | 2023-12-27 13:28 | CA_ITS ---
APPROVED REPORT Exam: Pharmacologic Technologist: Yovana Giordano, Ht: 5 ft 1 in Wt: 212 lbs BSA: 1.94 m2 HR: 66 bpm BP: 154/79 mmHg Rhythm: NSR Medical History Medications: Amlodipine,,,,, Atorvastatin,,,,, Carvedilol,,,,, CloPIdogrel,,,,, BenzONATATE,,,,, JaRDiance,,,,, TriaMterene-hctz,,,,, Stress Test Details Test: LEXISCAN Reason for pharmacologic stress test: physical limitation. HR Resting HR: 66 bpm Max Heart Rate (APMHR): 141 bpm Max HR Achieved: 78 bpm Target HR (85% APMHR): 120 bpm % of APMHR: 55 Recovery HR: 70 bpm BP Resting BP: 154.0/79.0 mmHg Max BP: 154.0/79.0 mmHg Recovery BP: 135.0/70.0 mmHg ECG Resting ECG: NSR, 1st degree AVB, T wave abns inferiorly & laterally Stress ECG: No significant ST changes Arrhythmia: None Clinical Exercise duration: 04:00 min Highest Stage Achieved: Exercise capacity: 1.0 METs Stress ECG Conclusion Symptoms: very mild head discomfort & SOA. No CP. Arrhythmias/Ectopy: None ST-T Changes: No significant ST changes. Conclusion: Unremarkable Lexiscan stress. Myoview images are reported separately. Test Summary REST . . . . . . . Resting REST 04:07 . . 66 . 154/ 79 . . Stage 1 01:00 . . 74 . . . . Stage 2 01:00 . . 76 . 138/ 71 . . Stage 3 01:00 . . 74 . 147/ 76 . . Stage 4 01:00 . . 74 . 146/ 73 . Stop exercise at 04:00 RECOVERY 01:00 . . 70 . . . . RECOVERY 02:00 . . 66 . 144/ 71 . . RECOVERY 02:47 . . 69 . 135/ 70 . . Electronically signed by : Rashmi Long MD 12/30/2023 22:22:12
[2023-12-27] MEDS: REGADENOSON 0.4MG/5ML SYRINGE 0.4 MG IV (13:33)
[2023-12-27] MEDS: ISOTOPE MYOVIEW (PER STUDY) 1 DOSE IV (13:34)
[2023-12-27] MEDS: SODIUM CHLORIDE 0.9% 10ML SYR (RAD ONLY) 10 ML IV ×2 (13:34)
== END 2023-12-27 23:59 | disposition home or self-care (01) ==
LOC: RAD 11:42
PROVIDERS: PCP Nurse Practitioner Family; Visit Provider Physician Assistant
DX: R94.31 Abnormal electrocardiogram [ECG] [EKG] (principal); R06.00 Dyspnea, unspecified; I51.89 Other ill-defined heart diseases; R01.1 Cardiac murmur, unspecified; I35.0 Nonrheumatic aortic (valve) stenosis
CPT/HCPCS: 78452; 93017; 93018; 93306; A9502; J2785

== ENCOUNTER 2024-01-31 20:24 | Emergency (ER) | payer MEDICARE, SELFPAY ==
[2024-01-31 20:27] VITALS: BP 157/97; PULSE 69; RESP 18; TEMP 36.6; O2SAT 97; BMI 39.4
[2024-01-31 20:42] VITALS: BP 148/88; PULSE 71; RESP 16; TEMP 36.6; O2SAT 98
--- NOTE | 2024-01-31 21:01 | CT_ITS ---
PROCEDURE INFORMATION: Exam: CT Thoracic Spine Without Contrast Exam date and time: 01/31/2024 9:17 PM Age: 78 years old Clinical indication: Injury or trauma; Fall; Additional info: Fall, pain, on blood thinners TECHNIQUE: Imaging protocol: Computed tomography of the thoracic spine without contrast. Total images: 373 Radiation optimization: All CT scans at this facility use at least one of these dose optimization techniques: automated exposure control; mA and/or kV adjustment per patient size (includes targeted exams where dose is matched to clinical indication); or iterative reconstruction. COMPARISON: CT CERVICAL SPINE WO CON 01/31/2024 9:15 PM FINDINGS: Bones/joints: Osteopenia. Thoracic vertebral body height and alignment is preserved. Moderate multilevel degenerative disc disease. Facet joints are appropriately aligned with mild degenerative spondylosis throughout. Posterior elements are intact. Costovertebral junctions are preserved. Visualized posterior ribs are maintained. No concerning bone lesions. No large disc herniation or critical spinal canal stenosis. Soft tissues: No paraspinal mass, edema, or fluid collection. Other findings: Additional findings can be found on separate chest CT report. IMPRESSION: 1. No acute thoracic fracture or traumatic subluxation. 2. Moderate multilevel degenerative disc disease.
--- NOTE | 2024-01-31 21:01 | XR_ITS ---
PROCEDURE INFORMATION: Exam: XR Right Humerus Exam date and time: 01/31/2024 9:16 PM Age: 78 years old Clinical indication: Pain; Upper arm; Right; Additional info: Fall, pain TECHNIQUE: Imaging protocol: Radiologic exam of the right humerus. Views: 2 or more views. Total images: 2 COMPARISON: CR XR SHOULDER RT MIN 2V 01/31/2024 9:13 PM FINDINGS: Bones/joints: Osteopenia. No acute fracture or joint dislocation. No concerning bone lesions. Shoulder and elbow views acquired separately. Soft tissues: Unremarkable soft tissues. IMPRESSION: Negative right humerus.
--- NOTE | 2024-01-31 21:01 | CT_ITS ---
PROCEDURE INFORMATION: Exam: CT Cervical Spine Without Contrast Exam date and time: 01/31/2024 9:15 PM Age: 78 years old Clinical indication: Injury or trauma; Fall; Additional info: Fall, pain, on blood thinners TECHNIQUE: Imaging protocol: Computed tomography of the cervical spine without contrast. Total images: 354 Radiation optimization: All CT scans at this facility use at least one of these dose optimization techniques: automated exposure control; mA and/or kV adjustment per patient size (includes targeted exams where dose is matched to clinical indication); or iterative reconstruction. COMPARISON: CT HEAD/BRAIN WO CON 01/31/2024 9:13 PM FINDINGS: Bones: Osteopenia. Partial straightening of cervical lordosis. Vertebral body height and alignment is preserved. The base of the dens and the C1 and C2 articulations are maintained with moderate degenerative arthropathy. The cervicooccipital junction is intact. Facet joints are appropriately aligned with moderate degenerative spondylosis affecting all levels. Posterior elements are intact. Corticated ossification posterior to the C7 spinous process compatible with remote injury. Moderate degenerative disc disease affecting all levels from C3 through C7 including posterior projecting disc osteophyte complex and mild acquired spinal canal stenosis. Additionally, bilateral neural foraminal encroachment affecting all levels from C3 through C7. Mild degenerative changes upper thoracic spine. No concerning bone lesions. Prevertebral and retropharyngeal spaces: No prevertebral soft tissue swelling. Lungs: Lung apices are clear. Thyroid: 8 mm right thyroid nodule requiring no strict follow-up. Vasculature: Mild calcifications bilateral carotid artery bifurcations. Soft tissues: Unremarkable soft tissues of the neck. IMPRESSION: 1. No acute cervical fracture or traumatic subluxation. 2. Partial straightening of lordosis from position or spasm. 3. Degenerative changes as described in detail.
--- NOTE | 2024-01-31 21:01 | XR_ITS ---
PROCEDURE INFORMATION: Exam: XR Right Elbow Exam date and time: 01/31/2024 9:19 PM Age: 78 years old Clinical indication: Injury or trauma; Fall; Additional info: Fall, pain TECHNIQUE: Imaging protocol: Radiologic exam of the right elbow. Views: 3 or more views. Total images: 3 COMPARISON: CR XR HUMERUS RT 01/31/2024 9:16 PM FINDINGS: Bones/joints: Osteopenia. No acute fracture, joint dislocation, or joint effusion. Mild degenerative arthropathy. Enthesophyte margin of the radial head neck. Tiny enthesophyte lateral humeral epicondyle. No concerning bone lesions. Soft tissues: Unremarkable soft tissues. IMPRESSION: Negative right elbow.
--- NOTE | 2024-01-31 21:01 | CT_ITS ---
PROCEDURE INFORMATION: Exam: CT Head Without Contrast Exam date and time: 01/31/2024 9:13 PM Age: 78 years old Clinical indication: Injury or trauma; Fall; Additional info: Fall, pain, on blood thinners TECHNIQUE: Imaging protocol: Computed tomography of the head without contrast. Total images: 562 Radiation optimization: All CT scans at this facility use at least one of these dose optimization techniques: automated exposure control; mA and/or kV adjustment per patient size (includes targeted exams where dose is matched to clinical indication); or iterative reconstruction. COMPARISON: MR HEAD/BRAIN WO CON 05/29/2022 12:17 PM FINDINGS: Brain: No acute intracranial hemorrhage, midline shift, or mass. Mild age-related cortical atrophy. Moderate white matter heterogeneity compatible with remote small vessel ischemic change. Ramos-white interface and basilar cisterns are preserved. Cerebral ventricles: Mild ventricular prominence compatible degree of central atrophy. No ventriculomegaly. Paranasal sinuses: Visualized sinuses are unremarkable. No fluid levels. Mastoid air cells: Visualized mastoid air cells are well aerated. Bones: Osteopenia. Hyperostosis of the frontal calvarium. No skull fracture. Soft tissues: Unremarkable. Vasculature: Severe calcifications bilateral intracranial internal carotid arteries. IMPRESSION: 1. No acute intracranial process. 2. Stable chronic findings.
--- NOTE | 2024-01-31 21:01 | CT_ITS ---
PROCEDURE INFORMATION: Exam: CT Chest Without Contrast; Diagnostic Exam date and time: 01/31/2024 9:20 PM Age: 78 years old Clinical indication: Injury or trauma; Fall; Additional info: Fall, pain, on blood thinners TECHNIQUE: Imaging protocol: Diagnostic computed tomography of the chest without contrast. Total images: 419 Radiation optimization: All CT scans at this facility use at least one of these dose optimization techniques: automated exposure control; mA and/or kV adjustment per patient size (includes targeted exams where dose is matched to clinical indication); or iterative reconstruction. COMPARISON: CR XR CHEST PORTABLE 05/29/2022 10:10 AM FINDINGS: Thyroid: 9 mm right thyroid nodule requiring no strict follow-up. Lungs: The trachea and main bronchi are patent. The lungs are clear and well expanded. 4 mm left lower lobe pulmonary nodule. 5 mm nodule along the left major fissure. Pleural spaces: No pleural effusion. No pneumothorax. Heart: Normal heart size. Mitral annular calcifications. No pericardial effusion. Coronary arteries: Mild coronary artery calcifications. Mediastinal space: No mediastinal mass or hematoma. Lymph nodes: No pathologically enlarged mediastinal lymph nodes. Vasculature: Mildly atherosclerotic thoracic aorta without aneurysm. Intraperitoneal space: No acute process in the upper abdomen. Bones/joints: Osteopenia. Moderate degenerative changes cervicothoracic spine. No displaced rib fractures. Soft tissues: Unremarkable. IMPRESSION: 1. No acute intrathoracic process. 2. No acute post-traumatic abnormalities. 3. Clear lungs. 4. Left lung micro nodules, not exceeding 5 mm. For patients at low risk (minimal or absent history of smoking and of other known risk factors), no routine follow-up is indicated. For patients at high risk (history of smoking or of other known risk factors), consider optional CT Chest at 12 months. (Reference: Darline) 5. Additional chronic and incidental findings. REFERENCES: Darline Dia, et al. Guidelines for Management of Incidental Pulmonary Nodules Detected on CT Images: From the Fleischner Society 2017. Radiology. 2017;284(1):228-243.
--- NOTE | 2024-01-31 21:01 | XR_ITS ---
PROCEDURE INFORMATION: Exam: XR Right Shoulder Exam date and time: 01/31/2024 9:13 PM Age: 78 years old Clinical indication: Pain; Shoulder; Right; Additional info: Fall, pain TECHNIQUE: Imaging protocol: Radiologic exam of the right shoulder. Views: 2 or more views. Total images: 3 COMPARISON: CR XR CHEST PORTABLE 05/29/2022 10:10 AM FINDINGS: Bones/joints: Osteopenia. No acute fracture, joint dislocation, or AC joint separation. Prominent enthesophyte undersurface of the acromion process can lead to chronic impingement. No concerning bone lesions. Mild age-related degenerative arthropathy. Soft tissues: Unremarkable soft tissues. IMPRESSION: 1. No acute osseous abnormality. 2. Mild degenerative arthropathy. 3. Prominent undersurface acromion spur likely leads to chronic impingement
[2024-01-31] MEDS: ACETAMINOPHEN 500MG TAB 1000 MG PO (21:11)
[2024-01-31] MEDS: LIDOCAINE 5% TRANSDERMAL PATCH 1 EACH TP (21:11)
[2024-01-31] MEDS: KETOROLAC 30MG/ML VIAL 30 MG IM (21:11)
[2024-01-31] MEDS: OXYCODONE 5MG IMMEDIATE RELEASE TABLET 5 MG PO (21:11)
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
--- NOTE | 2024-01-31 22:35 | PC.NURSE ---
I called radiology to ask them to check on read status of pending imaging reads. Julián states he will chat with Draker and call us back. Dr. Billingsley updated on this information.
[2024-01-31 23:22] VITALS: BP 151/82; PULSE 72; RESP 16; TEMP 36.6; O2SAT 98
== END 2024-01-31 23:24 | disposition home or self-care (01) ==
PROVIDERS: Emergency Provider Emergency Medicine; PCP Nurse Practitioner Family
DX: M25.511 Pain in right shoulder (principal); W01.10XA Fall on same level from slipping, tripping and stumbling with subsequent striking against unspecified object, initial encounter
CPT/HCPCS: 70450; 71250; 72125; 72128; 73030; 73060; 73080; 96372; 99285; J1885

== ENCOUNTER 2024-08-04 09:49 | Emergency (ER) | payer MEDICARE, SELFPAY ==
--- NOTE | 2024-08-04 11:28 | ED_ITS ---
Discharge Plan Disposition Patient Disposition: Home, Self-Care Condition: Good Prescriptions Prescriptions: New azithromycin [Zithromax] 250 mg tablet 250 mg PO UD DOSE PK Qty: 6 0RF Rx Instructions: Take two (2) tablets today, then one (1) tablet days #2 thru #5 benzonatate 100 mg capsule 100 mg PO TIDP PRN (Reason: Cough) Qty: 30 0RF methylprednisolone 4 mg Tablets,Dose Pack 4 mg PO DIRECTED 6 Days Qty: 21 0RF Rx Instructions: Take 1 pack as directed for 6 days oseltamivir [Tamiflu] 75 mg capsule 75 mg PO BID 5 Days Qty: 10 0RF No Action Jardiance 10 mg tablet 10 mg PO DAILY Qty: 90 3RF triamterene-hydrochlorothiazid 37.5-25 mg tablet 0.5 tab PO .twice weekly Qty: 30 2RF atorvastatin 40 mg tablet 40 mg PO HS clopidogrel 75 mg tablet 75 mg PO DAILY carvedilol 25 mg tablet 25 mg PO BID amlodipine 5 mg tablet 5 mg PO DAILY Patient Comments: TAKE 1 TABLET BY MOUTH ONCE DAILY benzonatate 100 mg capsule 100 mg PO TID PRN (Reason: cough) Qty: 30 0RF methocarbamol 750 mg tablet 750 mg PO Q8H PRN (Reason: pain) Qty: 20 0RF Referrals Follow up/Referrals: Louise Isaac [Primary Care Provider] - See instructions Activity Restrictions/Add. Instructions Additional Instructions/Restrictions: Drink plenty of fluids. Take tylenol or ibuprofen for pain or fever. Take the medications as directed. Follow up with your regular doctor. GO TO THE ER FOR ANY WORSENING SYMPTOMS Clinical Impressions Clinical Impression: Acute bronchitis, Influenza A Instructions Patient Instructions: Influenza, Acute Bronchitis, DI for Acute Bronchitis, DI for Influenza -- Adult, Oseltamivir Print Language Print Language: [place] Discharge ED Provider: Rashi Dumont [facility] HPI General Stated complaint: cough, diarrhea and soa Time Seen by Provider: 08/04/24 11:28 Related Data Home Medications ?Medication ?Instructions ?Recorded ?Confirmed amlodipine 5 mg tablet 5 mg PO DAILY Hypertension 05/29/22 08/04/24 carvedilol 25 mg tablet 25 mg PO BID Hypertension 05/29/22 08/04/24 atorvastatin 40 mg tablet 40 mg PO HS Cholesterol 10/10/22 08/04/24 clopidogrel 75 mg tablet 75 mg PO DAILY Blood thinner 10/10/22 08/04/24 Previous Rx's ?Medication ?Instructions ?Recorded benzonatate 100 mg capsule 100 mg PO TID PRN cough #30 caps 10/23/23 Jardiance 10 mg tablet 10 mg PO DAILY #90 tabs 12/12/23 (empagliflozin) triamterene 37.5 0.5 tab PO .twice weekly #30 tabs 12/12/23 mg-hydrochlorothiazide 25 mg tablet methocarbamol 750 mg tablet 750 mg PO Q8H PRN pain #20 tabs 01/31/24 azithromycin 250 mg tablet 250 mg PO UD DOSE PK #6 tabs 08/04/24 (Zithromax) benzonatate 100 mg capsule 100 mg PO TIDP PRN Cough #30 caps 08/04/24 methylprednisolone 4 mg tablets in 4 mg PO DIRECTED 6 days #21 tabs 08/04/24 a dose pack oseltamivir 75 mg capsule (Tamiflu) 75 mg PO BID 5 days #10 caps 08/05/24 Allergies Allergy/AdvReac Type Severity Reaction Status Date / Time No Known Allergies Allergy Verified 01/01/24 10:20 [facility] Disclaimer: The information contained in this section may have been updated after the patient was seen, as this information can be updated by other users. Medical History Dyspnea Mild aortic valve stenosis Murmur Diastolic dysfunction Abnormal ECG Hyperlipidemia History of stroke Hypertension Surgical History S/P appy Family History Other No significant family history Social History Smoking Status: Never smoker alcohol intake: never current occupational status: retired Travel in the last 8 weeks: None Have you lived/traveled outside [place] in past 30 days?: No Contact w/someone who lives/traveled outside [place] past 30 days?: No Exposure to someone with infectious disease in past 14 days?: No Do you have a fever (greater than 100.4 F or 38 C)?: No Have you tested positive for COVID-19: No Exposed to someone with COVID-19 in past 14 days?: No Do you have a sore throat?: No Do you have a cough?: No Do you have any weakness?: No Do you have any diarrhea?: Yes Are you experiencing any unusual bleeding?: No Do you have any muscle aches/pain?: No Do you have any abdominal pain?: No Are you experiencing loss of taste or smell?: No ROS Obtained: Yes All systems reviewed & no additional complaints except as documented Constitutional Constitutional: Reports chills and Reports fever(s) Eyes Eyes: Denies eye discharge ENT Ears, Nose, Mouth, and Throat: Reports as per HPI Cardiovascular Cardiovascular: Denies chest pain Respiratory Respiratory: Denies chest congestion and Reports cough Gastrointestinal Gastrointestingal: Reports nausea; Denies abdominal pain, constipation, cramping, diarrhea or vomiting Musculoskeletal Musculoskeletal: Denies arthralgias Integumentary/Breasts Skin/Breast: Denies rash Neurologic Neurologic: Denies paresthesias Physical Exam General General appearance: alert and in no apparent distress Head Head exam: atraumatic, normocephalic and normal inspection Eye Eye exam: Present normal appearance; Absent PERRL or EOMI ENT ENT exam: Present mucous membranes moist and normal external ear exam Expanded ENT Exam TM/Canal exam: Bilateral TM: erythema, bulging and effusion Nose exam: Absent sinus tenderness Nasal speculum exam: Bilateral: normal Mouth exam: Present normal external inspection and other; Absent drooling Teeth exam: Present normal inspection Throat exam: Present tonsillar erythema and tonsillomegaly Neck Neck exam: Present normal inspection, full ROM and trachea midline; Absent tenderness, meningismus or lymphadenopathy Chest Chest inspection: Present normal inspection and symmetric chest wall rise; Absent tenderness Respiratory Respiratory exam: Present normal lung sounds bilaterally; Absent respiratory distress, wheezes or stridor Cardiovascular Cardiovascular exam: Present regular rate, normal rhythm and normal heart sounds; Absent tachycardia or irregular rhythm Abdominal Exam Abdominal exam: Present soft and normal bowel sounds; Absent distention, tender ness, guarding, rebound or rigidity Extremities Exam Extremities exam: Present normal inspection and normal capillary refill; Absent tenderness, joint swelling or calf tenderness Back Exam Back exam: Present normal inspection and full ROM; Absent tenderness, CVA tenderness (R) or CVA tenderness (L) Neurological Exam Neurological exam: Present alert, oriented X3, CN II-XII intact, normal gait and reflexes normal; Absent motor sensory deficit Psychiatric Psychiatric exam: Present normal affect and normal mood Skin Skin exam: Present warm, dry, intact and normal color Lymphatic Lymphatic Findings: no adenopathy Medical Decision Making Medical Records Medical records reviewed: No I reviewed the patient's medical records. Screening: Per USPSTF and CDC recommendations, given the prevalence of disease in our region, it is our hospital?s policy to screen for HIV and viral Hepatitis for all patients aged 18 and over and those with ongoing risk factors. Tomi Inquiry Pt receiving controlled substance: No Lab Data Lab results reviewed: Yes I reviewed the patient's lab results.
[2024-08-04 11:35] VITALS: BP 121/71; PULSE 60; RESP 18; TEMP 37; O2SAT 94; BMI 36.9
--- NOTE | 2024-08-04 11:43 | XR_ITS ---
FINAL REPORT TECHNIQUE: Chest PA & Lateral CLINICAL HISTORY: cough, congestion, fever COMPARISON: 05/29/2022 FINDINGS: 2 views of the chest were performed. The heart size is normal. The mediastinum is within normal limits. There is no acute cardiopulmonary process. Mild chronic changes are noted. There are no pleural effusions. There is no pneumothorax. The bony thorax appears intact. IMPRESSION: No acute cardiopulmonary process. Reviewed, Interpreted and Dictated by Chris Aleman MD Transcribed by Zara Roldan Authenticated and [facility]
[2024-08-04 12:31] VITALS: BP 121/71; PULSE 60; RESP 18; TEMP 37
[2024-08-04 12:42] LABS: Coronavirus 19, PCR Not Detected (NotDetected); Human Rhinovirus Not Detected (NotDetected); Influenza B, PCR Not Detected (NotDetected); Respiratory Syncytial Virus Not Detected (NotDetected)
[2024-08-04 21:49] LABS: Influenza A, PCR Detected (NotDetected)
== END 2024-08-04 12:37 | disposition home or self-care (01) ==
PROVIDERS: Emergency Provider Nurse Practitioner Family; PCP Nurse Practitioner Family
DX: J20.9 Acute bronchitis, unspecified (principal); J09.X2 Influenza due to identified novel influenza A virus with other respiratory manifestations
CPT/HCPCS: 71046; 87631; 99212; G0381